=== PATIENT | male | born 1990 | race Caucasian/White ===

== ENCOUNTER 2020-06-23 08:49 | Outpatient (REF) | payer OTHER, SELFPAY | END 2020-06-23 08:50 | disposition home or self-care (01) | LOC: HO.LAB 08:49 | PROVIDERS: Visit Provider Internal Medicine | DX: Z20.822 Contact with and (suspected) exposure to COVID-19 (principal) | CPT/HCPCS: 36415; C9803; U0003; U0005 ==

== ENCOUNTER 2020-06-26 09:29 | Outpatient (REF) | payer OTHER, SELFPAY | END 2020-06-26 09:30 | disposition home or self-care (01) | LOC: HO.LAB 09:29 | PROVIDERS: Visit Provider Internal Medicine | DX: Z20.822 Contact with and (suspected) exposure to COVID-19 (principal) | CPT/HCPCS: 36415; C9803; U0003; U0005 ==

== ENCOUNTER 2023-08-12 21:17 | Emergency (ER) | payer OTHER, SELFPAY ==
[2023-08-12 21:47] VITALS: BP 143/95; PULSE 119; RESP 16; TEMP 37.9; O2SAT 95; BMI 33.3
[2023-08-12] MEDS: Acetaminophen 325 MG TABLET 975 MG PO (22:06)
[2023-08-12 22:18] LABS: IDNOW Serial# 58CA691E; Strep A Nucleic Acid Positive (Negative)
[2023-08-12 22:52] LABS: Influenza A PCR NEGATIVE (Negative); Influenza B PCR NEGATIVE (Negative); Resp Syncy Virus RNA Qual PCR NEGATIVE (Negative); SARS COV2 PCR INHOUSE NEGATIVE (Negative)
== END 2023-08-13 05:13 | disposition left against medical advice (07) ==
LOC: HO.ED 08-13 03:09
PROVIDERS: Emergency Provider Emergency Medicine
DX: J03.90 Acute tonsillitis, unspecified (principal); Z11.52 Encounter for screening for COVID-19; Z20.822 Contact with and (suspected) exposure to COVID-19
CPT/HCPCS: 0241U; 87651; 99282; 99283

== ENCOUNTER 2024-03-12 23:11 | Emergency (ER) | payer OTHER, SELFPAY ==
[2024-03-12 23:22] VITALS: BP 136/94; PULSE 78; RESP 16; TEMP 36.7; O2SAT 98; BMI 29.2
--- NOTE | 2024-03-13 00:04 | ED_ITS ---
HPI - General Adult General Chief complaint: Extremity Problem Stated complaint: Swollen Finger Time Seen by Provider: 03/13/24 00:04 Source: patient and RN notes reviewed Mode of arrival: ambulatory Limitations: no limitations History of Present Illness ED Provider: Fitz MAYBERRY narrative: 33-year-old male who denies any past medical history presents for evaluation of left 2nd finger pain. Patient reports that for the last 2 years he has had excessively dry skin with cracking of the left hand. This started after he was ?throwing salt outside to break up ice. He reports for the last couple of days he has had pain and swelling to his left index finger on the palmar side. Most of his pain he indicates he D IP joint. He denies any trauma or injury. He does not believe he got any foreign body in the skin His pain radiates towards his hand He is able to flex and extend the finger but reports pain with doing so Related Data Previous Rx's ?Medication ?Instructions ?Recorded cephalexin 500 mg tablet 500 mg PO QID #28 tabs 03/13/24 tramadol 50 mg tablet 50 mg PO Q6H PRN severe pain 03/13/24 (scale score 7-10) #12 tabs Allergies Allergy/AdvReac Type Severity Reaction Status Date / Time No Known Allergies Allergy Verified 03/12/24 23:23 [No Known Allergies*] Review of Systems Constitutional: Constitutional: Denies body ache(s), Denies chills and Denies fever(s) Eyes: Eyes: Denies floaters ENT: Denies vertigo and Denies dizziness Cardiovascular: Cardiovascular: Denies chest pain and Denies dyspnea Respiratory: Respiratory: Denies cough and Denies dyspnea Musculoskeletal: Musculoskeletal: Reports arthralgias and Reports joint swelling Integumentary/Breasts: Skin/Breast: Reports erythema, Reports skin pain and Reports skin swelling Neurologic: Denies vertigo and Denies dizziness PMFSH Social History Social History Advance Directives: No Advance Directives Information Provided: Yes Physical Exam ED Vital Signs: Vital Signs - 24 hr 03/12/24 23:22 Temperature 98.1 F Pulse Rate 78 Respiratory Rate 16 Blood Pressure 136/94 H Pulse Oximetry 98 Oxygen Delivery Method Room Air BMI result Body Mass Index 29.2 Const General: healthy appearing, comfortable, no acute distress, alert and awake Nutritional Appearance: well nourished Orientation/consciousness: patient oriented x3 HENMT Head: Yes normocephalic and Yes atraumatic Eyes Eyelids: Yes eyelids normal Conjunctivae: conjunctivae normal Sclerae: sclerae normal Corneas: corneas normal Pupils: Equal, round and reactive pupils present EOM: EOMs intact bilaterally Neck Neck: Yes full ROM Resp Effort & Inspection: normal respiratory effort, able to speak in complete sentences and not labored Cardio Rate: regular rate Rhythm: regular rhythm GI Inspection: No distended Palpation (GI): Soft to palpation, not firm, nontender, no guarding and not rigid Skin General skin exam: elasticity normal Neuro General: patient oriented x3 Cranial nerves: Yes Equal, round and reactive pupils present and Yes Bilaterally intact EOM present Cognition (Neuro): normal cognition Extrem Other: Patient has mild edema with erythema to the ulnar side of the D IP joint on the palmar surface. This area is tender to palpation. There appears to be a pinpoint opening with scant drainage. The patient has slightly reduced range of motion to this area with flexion. Procedures Abscess I/D Site: hand Side (if applicable): left (Second finger) Local Anesthetic: lidocaine 1% Amount of anesthesia used (mL): 3 Technique: needle aspiration Amount of fluid expressed (mL): 1 Sent for culture/gram staining?: No Irrigation: No Packing used?: none Medical Decision Making Medical Decision Making MDM Narrative: 33-year-old male presents for evaluation of pain, redness and swelling to the left 2nd finger. He has very dry and cracked skin and likely has a cellulitis developing of the palmar surface. He may have a tiny abscess. We will attempt needle aspiration of the area. The patient will be prescribed antibiotics and referral to hand surgery for any further evaluation and management. He has no fever, no evidence of tenosynovitis Differential Diagnosis Differential Diagnoses: The differential diagnosis associated with the presentation includes Left 2nd finger cellulitis Abscess Puncture wound Foreign body less likely Discharge Plan Discharge Clinical Impression: Cellulitis of finger, left Patient Disposition: Home, Self-Care Instructions: Cellulitis (ED) Additional Instructions: Take the cephalexin 4 times daily for the next [address] Sandra Potter on Friday to schedule follow-up with hand surgery Apply warm compresses. Use ibuprofen and Tylenol for pain. You may use tramadol for more severe breakthrough pain. This may make you drowsy, do not drink alcohol or drive after taking it Follow-up with your primary doctor, return for new or worsening symptoms Prescriptions: New cephalexin 500 mg tablet 500 mg PO QID Qty: 28 0RF tramadol 50 mg tablet 50 mg PO Q6H PRN (Reason: severe pain (scale score 7-10)) Qty: 12 0RF Referrals: Sandra Potter MD [Physician] - (left 2nd finger cellulitis, ? abscess) Print Language: Botswanan
[2024-03-13 01:01] VITALS: BP 138/74; PULSE 76; RESP 16; TEMP 36.9; O2SAT 97
[2024-03-13] MEDS: oxyCODONE HCl Immed Release 5 MG TABLET PO (01:12)
[2024-03-13] MEDS: cephALEXin 500 MG CAPSULE PO (01:13)
[2024-03-13] MEDS: Lidocaine HCl 1 % MPF 5 ML VIAL INFILTRATI (01:13)
[2024-03-13 01:21] VITALS: BP 138/74; PULSE 76; RESP 16; TEMP 36.9; O2SAT 97
== END 2024-03-13 01:22 | disposition home or self-care (01) ==
PROVIDERS: Emergency Provider Internal Medicine; PCP Internal Medicine
DX: L03.012 Cellulitis of left finger (principal); M79.645 Pain in left finger(s)
CPT/HCPCS: 10160; 99283; 99284; J2003

== ENCOUNTER 2024-03-24 11:05 | Outpatient (REF) | payer OTHER, SELFPAY | END 2024-03-24 11:06 | disposition home or self-care (01) | LOC: HO.HOSX 11:05 | PROVIDERS: Visit Provider Orthopaedic Surgery | DX: Z13.89 Encounter for screening for other disorder (principal) ==

== ENCOUNTER 2025-01-08 15:46 | Emergency (ER) | payer OTHER, SELFPAY ==
--- NOTE | 2025-01-08 15:51 | ED_ITS ---
HPI - General Adult General Chief complaint: General Medical Stated complaint: abnormal labs Time Seen by Provider: 01/08/25 15:50 Source: patient Mode of arrival: ambulatory Limitations: no limitations History of Present Illness ED Provider: Kassy San PA-C HPI narrative: Patient is a 34 year old assigned male at with no reported medical history presenting to the emergency department today for Syphilis treatment. Patient states that his partner just tested positive for Syphilis and he was instructed to be treated prophylactically. Patient denies any other complaints at this time. Related Data Previous Rx's ?Medication ?Instructions ?Recorded cephalexin 500 mg tablet 500 mg PO QID #28 tabs 03/13 tramadol 50 mg tablet 50 mg PO Q6H PRN severe pain 03/13/24 (scale score 7-10) #12 tabs Allergies Allergy/AdvReac Type Severity Reaction Status Date / Time bee pollen (bees) Allergy Anaphylaxis Verified 01/08/25 15:55 Review of Systems Constitutional: Constitutional: Reports as per HPI Eyes: Eyes: Reports as per HPI ENT: Reports as per HPI Cardiovascular: Cardiovascular: Reports as per HPI Respiratory: Respiratory: Reports as per HPI Gastrointestinal: Gastrointestinal: Reports as per HPI Genitourinary: Genitourinary: Reports as per HPI Musculoskeletal: Musculoskeletal: Reports as per HPI Integumentary/Breasts: Skin/Breast: Reports as per HPI Neurologic: Reports as per HPI Psychiatric: Psychiatric: Reports as per HPI Endocrine: Endocrine: Reports as per HPI Hematologic/Lymphatic: Hematologic/Lymphatic: Reports as per HPI Allergic/Immunologic: Allergic/Immunologic: Reports as per HPI [facility] Past Medical History Attestation statement: The following information was validated with the patient. Source: old records reviewed and nursing notes reviewed Social History Social History Advance Directives: No Advance Directives Information Provided: No Do you have a plan to hurt others: No Plan Physical Exam ED Vital Signs: Vital Signs - 24 hr 01/08/25 15:53 01/08/25 17:31 Temperature 97.8 F 97.8 F Pulse Rate 80 80 Respiratory Rate 18 18 Blood Pressure 111/68 111/68 Pulse Oximetry 95 95 Oxygen Delivery Method Room Air Room Air BMI result Body Mass Index 35.9 Const General: cooperative, no acute distress, alert and awake Nutritional Appearance: well nourished Orientation/consciousness: patient oriented x3 HENMT Head: Yes normal to inspection and Yes atraumatic Ears: hearing grossly normal bilaterally and external ears normal General nose exam: Normal external nose present, no nasal discharge noted and no epistaxis Face and sinus: Yes normal facial exam, No abrasion and No laceration Mouth: Normal oral and palatal mucosa present, no drooling and no muffled voice Eyes General: appearance normal, both eyes and all related structures Periorbital: periorbital findings normal Eyelids: Yes eyelids normal Conjunctivae: conjunctivae normal Pupils: Equal, round and reactive pupils present EOM: EOMs intact bilaterally Neck Neck: Yes normal visual inspection and Yes full ROM Resp Effort & Inspection: normal respiratory effort and able to speak in complete sentences Neuro General: patient oriented x3, moves all extremities and CN's II-XI intact bilaterally Cranial nerves: Yes Equal, round and reactive pupils present Cognition (Neuro): normal cognition Extrem General: Yes normal to inspection, Yes full ROM and Yes capillary refill normal Psych Appearance: grossly normal Mental Status: mental status grossly normal Affect: normal affect Attitude: cooperative Thought process: Normal thought process present Thought content: Normal thought content present Insight: Good insight present (Psych) Medications Administered Discontinued Medications Generic Name Dose Route Start Last Admin Trade Name Freq PRN Reason Stop Dose Admin Penicillin G Benzathine 2,400,000 unit 01/08/25 17:30 01/08/25 17:34 Penicillin G Benzathine 1,200,000 Unit/2 Ml Syringe IM 01/08/25 17:31 2,400,000 unit ONCE ONE Administration Medical Decision Making Medical Decision Making [facility] Narrative: Patient is a 34 year old assigned male at with no reported medical history presenting to the emergency department today for Syphilis treatment. Patient's physical exam was as noted in the physical exam portion of this note. I explained my physical exam findings to the patient. I answered all questions asked by the patient. Patient was treated for Syphilis with Pen G. I stressed the importance of the patient taking his medication as directed (either prescribed or as the over the counter packaging recommends). I stressed the importance of the patient following up with his primary care provider. I stressed the importance of the patient returning to the emergency department immediately if he were to develop any dizziness, shortness of breath, difficulty breathing, chest pain, blurry vision, loss of vision, nausea, vomiting, abdominal pain, fever, chills, back pain, or any other complaints. Patient verbalized agreement and understanding with this treatment plan and discharge. Differential Diagnosis Differential Diagnoses: The differential diagnosis associated with the presentation includes Syphilis exposure Syphilis treatment Admission/Observation Consideration of admission/observation: Escalation of care including admission/observation considered Patient would have been admitted to the hospital had his clinical presentation warranted hospital admission. Discharge Plan Discharge Clinical Impression: Exposure to syphilis Patient Disposition: Home, Self-Care Additional Instructions: You were treated for Syphillis today. IF you are prescribed home medications and/or you are taking over the counter medications at home - it is very important you continue to do so as prescribed / directed unless told otherwise. Follow up with a primary care provider. Return to the emergency department immediately if your symptoms worsen or if you develop any numbness, tingling, dizziness, shortness of breath, difficulty breathing, chest pain, blurry vision, loss of vision, nausea, vomiting, abdominal pain, fever, chills, back pain, or any other complaints. If you do not have a primary care provider - call any of the below numbers to establish and follow up with a primary care provider. [facility] Primary Care ([place]) [phone] [place] [address], [address] [facility] Primary Care ([address] [place]) [phone] [place] [address], [address] [facility], [address] [facility] Primary Care ([address] [place]) [phone] [place] [address], [address] [facility], [address] [facility] Primary Care ([place]) [phone] [place] [address], [address] [facility], [address] [facility] Family Medicine [phone] [address] [facility], [address] Please see the information below about our Patient Portal. If you are not yet enrolled in the [facility] Patient Portal, you will receive an enrollment email invitation following your visit to any [facility] setting. You may also self-enroll in the Patient Portal by visiting our website: [email or web address] The following information is required to access the Patient Portal: - Your [facility] Medical Record Number - Your personal home email address (must match what is in your electronic medical record, Registration staff can assist with this) - Name - Date of Capabilities of the Patient Portal: - Message some providers - View upcoming appointments - Access your health summary, medical history, and visit history - View current conditions and allergies - View procedure and lab results - View your medications, including guidelines, side effects, and precautions - Complete pre-appointment questionnaires requested by your provider - Ready summary reports of your office visits and procedures To access the Patient Portal Mobile [employer], follow these directions: - Search [employer] in the [employer] Store or Google [employer] Store - Download the [facility] - Search for [facility] - Enter your login/password Prescriptions: No Action cephalexin 500 mg tablet 500 mg PO QID Qty: 28 0RF tramadol 50 mg tablet 50 mg PO Q6H PRN (Reason: severe pain (scale score 7-10)) Qty: 12 0RF Interventions: ED Discharge Assessment Last Done: 01/08/25 17:31 Discharge Date/Time: 01/08/25 17:58 Print Language: German
[2025-01-08 15:53] VITALS: BP 111/68; PULSE 80; RESP 18; TEMP 36.6; O2SAT 95; BMI 35.9
--- OUTSIDE RECORDS SUMMARY | 2025-01-08 16:49 | XMS_ITS | Clinical Summary ---
Author Organization [facility] ity Address [address] [place] [address] Care Team Providers Care Pulp Beater Name Role Phone Unavailable Primary Care Provider Unavailabl e Social History Tobacco Use Types Packs/Day Years Used Date Smoking Tobacco: Never Assessed Sex and Gender Information Value Date Recorded Sex Assigned at Not on file Legal Sex Male 2:52 PM EST Gender Identity Not on file Sexual Orientation Not on file Plan of Treatment Health Maintenance Due Date Last Done Comments DTaP,Tdap,and Td Vaccines (1 - Tdap) 2008 Hepatitis B Vaccines (1 of 3 - 19+ 3-dose series) 2008 COVID-19 Vaccine (2023-2 5 season) 2023 Depression Screening 04/28/2024 Influenza Vaccine (#1) 2024 HIB Vaccines Aged Out No longer eligi ble based on patient's age to complete this topic HPV Vaccines Aged Out No longer eligi ble based on patient's age to complete this topic Hepatitis A Vaccines Aged Out No long er eligible based on patient's age to complete this topic IPV Vaccines Aged Out No longer eligi ble based on patient's age to complete this topic MMR Vaccines Aged Out No longer eligi ble based on patient's age to complete this topic Meningococcal ACWY Vaccine Aged Out N o longer eligible based on patient's age to complete this topic Meningococcal B Vaccine Aged Out No l onger eligible based on patient's age to complete this topic Pneumococcal Vaccine: Pediat rics (0 to 5 Years) and At-Risk Patients (6 to 49 Years) Aged Out No longer eligible b ased on patient's age to complete this topic RSV Immunization Patients Un cherrie 20 months Aged Out No longer eligible b ased on patient's age to complete this topic Varicella Vaccines Aged Out No longer eligible based on patient's age to complete this topic
[2025-01-08 17:31] VITALS: BP 111/68; PULSE 80; RESP 18; TEMP 36.6; O2SAT 95
== END 2025-01-08 17:58 | disposition home or self-care (01) ==
PROVIDERS: Emergency Provider Emergency Medicine
DX: Z20.2 Contact with and (suspected) exposure to infections with a predominantly sexual mode of transmission (principal)
CPT/HCPCS: 96372; 99282; 99284; J0561

== ENCOUNTER 2025-04-01 12:38 | Emergency (ER) | payer OTHER, SELFPAY ==
[2025-04-01 12:55] VITALS: BP 161/90; PULSE 79; RESP 18; TEMP 36.3; O2SAT 96; BMI 35.5
--- NOTE | 2025-04-01 12:56 | ED.GENADULT ---
HPI - General Adult General Chief complaint: Recheck/Abnormal Lab/Rx Stated complaint: General Medical Related Data Previous Rx's ?Medication ?Instructions ?Recorded cephalexin 500 mg tablet 500 mg PO QID #28 tabs 03/13/24 tramadol 50 mg tablet 50 mg PO Q6H PRN severe pain 03/13/24 (scale score 7-10) #12 tabs Allergies Allergy/AdvReac Type Severity Reaction Status Date / Time bee pollen (bees) Allergy Anaphylaxis Verified 04/01/25 12:55 [facility] Social History Social History Advance Directives: No Advance Directives Information Provided: No Do you have a plan to hurt others: No Plan Physical Exam ED Vital Signs: Vital Signs - 24 hr 04/01/25 12:55 Temperature 97.4 F Pulse Rate 79 Respiratory Rate 18 Blood Pressure 161/90 H Pulse Oximetry 96 Oxygen Delivery Method Room Air BMI result Body Mass Index 35.5 Course Course Course Narrative: Rapid medical examination performed in triage by Kassy San PA-C: Patient is a 34 year old assigned male at presenting to the emergency department requesting drug testing and STI testing. Patient states that he has no symptoms but he wants to be checked. Detailed physical exam and review of systems are deferred to the business continuity director. Labs ordered. Patient placed back in the waiting room pending room availability and results. Patient left the department without completing treatment. Patient left the department before myself or any of the other emergency department clinicians could explain to or review with the patient; physical exam findings, test results, need or lack there of for additional testing, need or lack there of for a procedure to be performed, need or lack there of for hospital admission / transfer, need or lack there of for prescription medication, treatment options, or a treatment plan. Patient's limited physical exam performed in triage showed a non-toxic individual with appropriate breathing, alert and oriented, and ambulating without assistance. Reevaluation(s) Reevaluation #1: 04/04/25: Provider: Yolanda Almodovar PA-C, pt left prior to being seen, labs have a positive RPR which is reactive, it is reflexing to treponema and confirmatory testing, no changes at this time. Time: 13:14 Medical Decision Making Lab Data Labs: Lab Results 04/01/25 Range/Units 14:40 Ur N gonorrhoeae DNA (PCR) NOT DETECTED (Not Detect.) Urine Opiates Screen Not Detected (Not Detect) Ur Buprenorphine Scrn Not Detected (Not Detect) ng/mL Ur Oxycodone Screen Not Detected (Not Detect) ng/mL Urine Methadone Screen Not Detected (Not Detect) ng/mL Urine Fentanyl Screen Not Detected (Not Detect) Ur Barbiturates Screen Not Detected (Not Detect) Ur Phencyclidine Scrn POSITIVE H (Not Detect) Ur Amphetamines Screen Not Detected (Not Detect) U Benzodiazepines Scrn Not Detected (Not Detect) Urine Cocaine Screen Not Detected (Not Detect) U Marijuana (THC) Screen POSITIVE H (Not Detect) T.pallidum Ab (EIA) Reactive A (Nonreactive) Ur Chlamydia DNA (PCR) NOT DETECTED (Not Detect.) Discharge Plan Discharge Clinical Impression: Concern about STD in male without diagnosis Patient Disposition: Left W/O Completing Treatment Prescriptions: No Action cephalexin 500 mg tablet 500 mg PO QID Qty: 28 0RF tramadol 50 mg tablet 50 mg PO Q6H PRN (Reason: severe pain (scale score 7-10)) Qty: 12 0RF Discharge Date/Time: 04/01/25 17:57
[2025-04-01 16:16] LABS: CT PCR Urine NOT DETECTED (Not Detect.); NG PCR Urine NOT DETECTED (Not Detect.)
[2025-04-01 17:28] LABS: Cannabinoid Screen Urine POSITIVE (Not Detect)
--- OUTSIDE RECORDS SUMMARY | 2025-04-01 20:02 | XMS_ITS | Clinical Summary ---
Author Organization [facility] Address [address] [place] [address] Care Team Providers Care Finance Analyst Name Role Phone Unavailable Primary Care Provider [...] of 3 - 19+ 3-dose series) 2008 HPV Vaccines (1 - 3-dose SCD M series) 2016 Depression Screening 04/28/2024 COVID-19 Vaccine (1 - 2024-2 6 season) 2024 Influenza Vaccine (#1) 2024 RSV Immunization Adult Patie nts (1 - 1-dose 75+ series) 2064 HIB Vaccines Aged Out No longer eligi [...]
[2025-04-02 08:42] LABS: Syphilis Screen Reactive (Nonreactive)
[2025-04-08 14:38] LABS: T.Pallidum Particle Agg Test Reactive (Nonreactive)
== END 2025-04-01 17:57 | disposition left against medical advice (07) ==
LOC: HO.ED 17:53
PROVIDERS: Physician Assistant Medical; Emergency Provider Emergency Medicine
DX: R79.89 Other specified abnormal findings of blood chemistry (principal); Z20.2 Contact with and (suspected) exposure to infections with a predominantly sexual mode of transmission; Z51.81 Encounter for therapeutic drug level monitoring; Z79.899 Other long term (current) drug therapy
CPT/HCPCS: 36415; 80307; 86592; 86780; 87491; 87591; 99282; 99283